=== PATIENT | female | born 1985 | race Two or more races ===

== ENCOUNTER → 2024-07-03 | Outpatient (BNVA) | payer MEDICAID, SELFPAY | END | disposition home or self-care (01) | PROVIDERS: PCP Physician Assistant; Referring Provider Physician Assistant; Visit Provider Urology | DX: N13.30 Unspecified hydronephrosis (principal); C55 Malignant neoplasm of uterus, part unspecified; C56.9 Malignant neoplasm of unspecified ovary; E66.9 Obesity, unspecified; Z68.43 Body mass index [BMI] 50.0-59.9, adult | CPT/HCPCS: 81003; 99212; G0463 ==

== ENCOUNTER → 2024-08-28 | Outpatient (CLI) | payer MEDICAID, SELFPAY ==
--- NOTE | 2024-08-28 13:00 | XR_ITS ---
Examination: Nuclear medicine kidney imaging flow and function multiple studies Exam date and time: August 28, 2024 1255 hrs. Indications: Pelvic carcinoma diagnosis, mild to moderate bilateral hydronephrosis on CT study March 20232023 Technique And Findings: Intravenous administration 10.2 mCi technetium 99m MAG3 Flow and function curves generated to 60 minutes Intravenous Lasix administered at 20 minutes Adequate flow and function multiple kidneys, Lasix administration does not have any effect on renal excretion Impression: Adequate flow and function of both kidneys
[2024-08-28 14:20] VITALS: BP 130/91; PULSE 73
[2024-08-28] MEDS: FUROSEMIDE INJ 10 MG/ML 4ML VIAL 40 MG IVP (14:20)
[2024-08-28 14:30] VITALS: BP 120/76; PULSE 74; RESP 14; O2SAT 100
== END | disposition home or self-care (01) ==
PROVIDERS: PCP Physician Assistant; Referring Provider Urology; Visit Provider Urology
DX: N13.30 Unspecified hydronephrosis (principal)
CPT/HCPCS: 78709; A9562; J1940

== ENCOUNTER → 2024-10-03 | Outpatient (BNVA) | payer MEDICAID, SELFPAY | END | disposition home or self-care (01) | PROVIDERS: PCP Physician Assistant; Referring Provider Physician Assistant; Visit Provider Urology | DX: N13.30 Unspecified hydronephrosis (principal); E66.01 Morbid (severe) obesity due to excess calories; Z68.42 Body mass index [BMI] 45.0-49.9, adult; C55 Malignant neoplasm of uterus, part unspecified; C56.9 Malignant neoplasm of unspecified ovary | CPT/HCPCS: 81003; 99212; G0463 ==

== ENCOUNTER 2024-11-03 13:22 | Emergency (ER) | payer MEDICAID, SELFPAY ==
[2024-11-03 13:23] VITALS: BMI 49.7
[2024-11-03 13:47] VITALS: BP 149/97; PULSE 90; RESP 18; TEMP 37.2; O2SAT 99; BMI 49.7
--- NOTE | 2024-11-03 13:51 | EKG_ITS ---
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
--- NOTE | 2024-11-03 13:51 | XR_ITS ---
Examination: CT brain head without contrast. 2-D sagittal coronal reconstructions Date and time of exam:November 03, 2024 1436 hours INDICATIONS: Onset headache right-sided facial numbness beginning 2 days ago CTDI: vol (mGy):49.8 DLP: (mGycm):978 Technique: Multiple CT axial sections of the brain have been obtained, 5 mm slice thickness. Contrast has not been administered. 2-D sagittal, coronal reconstructions have been obtained Low dose protocols were performed. One or more of the following dose reduction techniques were used; automated exposure control, adjustment of the mA and/or KV according to patient size, use of iterative reconstruction technique. Findings: No significant ventricular enlargement. Intra-axial or extra-axial hemorrhage density is not seen. No mass effect or midline shift Basal cisterns are not remarkable. Fourth ventricle is midline. Cranial vault intact. Impression: Negative for acute hemorrhage, mass effect or midline shift As clinically warranted, brain MRI follow-up would best assess for demyelinating disease
--- NOTE | 2024-11-03 13:51 | XR_ITS ---
Examination: AP lateral chest 2 views TECHNIQUE: AP lateral upright chest 2 views Exam date and time: November 03, 2024 1402 hours INDICATIONS: Chest pressure today. FINDINGS: Normal heart size Lungs are clear. Osseous structures are intact IMPRESSION: No active disease
--- NOTE | 2024-11-03 13:53 | PD.EDRME ---
Rapid Medical Screening Exam RME Arrival date/time: 11/03/24 13:22 39-year-old female presents to the emergency department for complaints of headache right-sided facial numbness and chest pressure Chief Complaint: Neuro Symptoms/Deficit Time Seen by Provider: 11/03/24 13:34 Vital signs: Vital Signs Temperature 98.9 F 11/03/24 13:47 Pulse Rate 90 11/03/24 13:47 Respiratory Rate 18 11/03/24 13:47 Blood Pressure 149/97 H 11/03/24 13:47 Pulse Oximetry (%) 99 11/03/24 13:47 Oxygen Delivery Method Room Air 11/03/24 13:47
[2024-11-03 15:02] LABS: Basophils # (Auto) 0.1 Thou/mm3 (0.0-0.2); Basophils % (Auto) 0 % (0-2.5); Eosinophils # (Auto) 0.4 Thou/mm3 (0.0-0.5); Eosinophils % (Auto) 3 % (0-10); Hematocrit 40.5 % (36.0-46.0); Hemoglobin 13.8 g/dL (12.0-16.0); Immature Granulocytes % (Auto) 0 % (0-0); Immature Granulocytes Auto 0.05 Thou/mm3 (0.00-0.00); Lymphocytes # (Auto) 3.4 Thou/mm3 (1.0-4.8); Lymphocytes % (Auto) 30 % (10-50); Mean Corpuscular HGB Conc 34.1 g/dl (31.0-37.0); Mean Corpuscular Volume 85 fL (80-100); Monocytes # (Auto) 0.8 Thou/mm3 (0.0-0.8); Monocytes % (Auto) 7 % (0-12); Neutrophils # (Auto) 6.9 Thou/mm3 (1.8-7.7); Neutrophils % (Auto) 60 % (37-80); Nucleated Red Blood Cell % 0 /100 WBC (0); Platelet Count 282 Thou/mm3 (140-440); Red Blood Count 4.76 Miln/mm3 (4.00-5.20); White Blood Count 11.5 Thou/mm3 (3.6-11.0)
[2024-11-03 15:24] LABS: Alanine Aminotransferase 18 U/L (10-49); Albumin, Serum 4.3 gm/dL (3.5-5.0); Albumin/Globulin Ratio 1.2 (1.2-2.2); Alkaline Phosphatase 112 U/L (46-116); Anion Gap 9 (7-16); Aspartate Amino Transferase 16 U/L (0-34); BUN/Creatinine Ratio 14 Ratio (12-20); Bilirubin,Total 0.3 mg/dL (0.3-1.2); Blood Urea Nitrogen 11 mg/dL (9-23); Calcium 8.8 mg/dL (8.3-10.6); Calcium (Corrected) 8.8 mg/dL (8.5-10.1); Carbon Dioxide 27.1 mMol/L (20.0-31.0); Chloride 105 mMol/L (98-107); Creatinine (Component) 0.8 mg/dL (0.6-1.3); Estimated Creatinine Clearance 118.4 mL/min (>60); Globulin 3.5 gm/dL (2.3-3.5); Glucose 90 mg/dL (74-106); Osmolality,Calculated 280 (275-295); Potassium 4.1 mMol/L (3.4-5.1); Sodium 141 mMol/L (136-145); Total Protein 7.8 gm/dL (5.7-8.2); Troponin I < 0.002 ng/mL (0.0-0.045); eGFR > 60 See Note
[2024-11-03 15:29] VITALS: BP 158/97; PULSE 91; RESP 19; TEMP 37.1; O2SAT 98
--- NOTE | 2024-11-03 17:25 | EDNOTE_ITS ---
<Statement entered by Emerita Amin MD - 11/14/24 06:11> As co-signing physician, I was present and available for consult prn. I concur with the plan and care as documented by the midlevel provider. Neuro Symptoms Deficit-RME/HPI General Chief Complaint: Neuro Symptoms/Deficit Stated Complaint: R FACIAL NUMBNESS X4 DAYS Time Seen by Provider: 11/03/24 13:34 Arrival date/time: 11/03/24 13:22 RME / HPI RME / HPI Narrative: 39-year-old female patient with no significant past medical history except for obesity, came in for evaluation regarding right-sided facial numbness. Onset of symptoms for the last 4 days severity of symptoms mild. Patient denies any facial muscle weakness. Denies any upper or lower extremity weakness. Denies any drooling, denies any headache denies any dizziness denies any fever denies any other complaints no medications taken prior to arrival. Related Data Home Medications ?Medication ?Instructions ?Recorded ?Confirmed tirzepatide (weight loss) 5 mg/0.5 5 mg subcut QWEEK 0 07/03/24 10/03/24 mL subcutaneous pen injector (Zepbound) Previous Rx's ?Medication ?Instructions ?Recorded albuterol sulfate 90 mcg/actuation 2 puff inhalation Q 6H PRN 10/01/23 aerosol inhaler (Ventolin HFA) shortness of breath or wheezing #8.5 grams Allergies Allergy/AdvReac Type Severity Reaction Status Date / Time No Known Allergies Allergy Verified 10/03/24 08:30 Review of Systems Review of Systems Narrative Review of Systems: Review of system reviewed and within normal limits except mentioned in HPI ED Exam Narrative Physical exam: VITAL SIGNS: Reviewed. GENERAL APPEARANCE: Alert and interactive, follows commands, no acute distress, HEAD AND FACE: Non-traumatic. ENT: PERRL, pink conjunctivitis, eyelid no trauma, Mucous membrane moist. NECK: Supple, nontender, no nuchal rigidity. CHEST: No tenderness, no crepitus, no paradoxical movement, no retractions. LUNGS: Clear, well ventilated, symmetric, no rales, no wheezing, no ronchi, no stridor, good breath sounds bilaterally. HEART: Regular rate, regular rhythm, no murmur, no gallops. ABDOMEN: Soft, positive bowel sounds, nondistended, no guarding, nontender, no rebound, no masses, RECTAL: Deferred. GENITAL: Deferred. NEUROLOGICAL: Gross motor function intact sensory function intact both upper and lower extremity, right-sided numbness noted on the side of the mouth, tongue midline protrusion appropriate for age. MUSCULOSKELETAL: low back nontender, full range of motion. EXTREMITIES: Nontender, full range of motion. SKIN: Color pink, dry, no rash, no lacerations, no abrasions, no contusions. LYMPHATICS: Deferred. Course Quality Measures none Orders Category Date Time Status EKG (ED ONLY) *Do not use* NOW Care 11/03/24 13:[address] head/brain wo con Stat Exams 11/03/24 13:51 Completed EKG (ED Only) Stat Exams 11/03/24 13:51 Draft XR chest 2V Stat Exams 11/03/24 13:51 Completed CBC Stat Lab 11/03/24 14:45 Completed Comprehensive Metabolic Panel Stat Lab 11/03/24 14:45 Completed Troponin I Stat Lab 11/03/24 14:45 Completed Vital Signs Vital signs: Vital Signs Temperature 98.9 F 11/03/24 13:47 Pulse Rate 90 11/03/24 13:47 Respiratory Rate 18 11/03/24 13:47 Blood Pressure 149/97 H 11/03/24 13:47 Pulse Oximetry (%) 99 11/03/24 13:47 Oxygen Delivery Method Room Air 11/03/24 13:47 Neuro Symptoms / Deficit MDM Narrative MDM Narrative:: 39-year-old female patient with no significant past medical history except for obesity, came in for evaluation regarding right-sided facial numbness. Onset of symptoms for the last 4 days severity of symptoms mild. Patient denies any facial muscle weakness. Denies any upper or lower extremity weakness. Denies any drooling, denies any headache denies any dizziness denies any fever denies any other complaints no medications taken prior to arrival. CT scan of the head unremarkable. Patient's workup also came back normal I personally reviewed and interpreted the x-ray of this patient. There is no acute abnormalities found, no infiltrates no pneumothorax no hemothorax normal chest x-ray. Review of other structures was without significant abnormal findings also. I additionally reviewed the radiologist report and agree with the interpretation. EKG showed normal sinus rhythm, ventricular rate of 88 bpm, no ST segment elevation depression noted. Patient was advised to closely follow-up with PCP and return to emergency room for worsening of symptoms especially if patient is complaining of upper or lower extremity weakness. Patient data External records reviewed:: None Clinical information provided by:: none Social determinants that could affect healthcare access:: none Patient has the following chronic illnesses:: None How is presenting disease/condition affected by chronic disease/condition?: no chronic disease Evaluation data The following diagnostics were reviewed and interpreted by me:: lab results, radiology exam(s) and EKG tracing(s) Lab and/or radiology exams considered but not ordered:: None Interpretation Summary: See results MDM Medications / Prescriptions Medications or Prescriptions considered but not ordered:: None Medication administrations:: None Consultations Consultation(s) initiated? (list below): No Diagnosis Neuro Differential Diagnosis: peripheral neuropathy and other (Paresthesia, CVA) Most likely diagnosis given after review of the tests above:: Facial paresthesia Admission Indicated Admission indicated?: not indicated Admission Request Was there a request for admission?: No Disposition Plan Disposition Plan: Discharge Discharge Attestation Discharge Attestation: The patient was given an opportunity to ask questions and understood the discharge instructions. Discharge instructions specifically effects, indications for sooner follow up or return to the emergency department, and the expected course of current diagnosis. Patient condition: Stable Discharge Plan Plan Patient Disposition: HOME (Self Care) Discharge Disposition comment: Stable Prescriptions/Referrals Prescriptions/Med Rec: No Action Zepbound 5 mg/0.5 mL pen injector 5 mg subcut QWEEK albuterol sulfate [Ventolin HFA] 90 mcg/actuation HFA aerosol inhaler 2 puff inhalation Q6H PRN (Reason: shortness of breath or wheezing) Qty: 8.5 3RF Referrals: No Primary/Family,Physician [Primary Care Provider] - In 1 week Problem List Clinical Impression: Facial paresthesia Patient/Caregiver Discharge Instructions Discharge Activity: activity as tolerated Education Materials: ED Paraesthesias Additional Instructions: Thank you for the opportunity for serving you today. You are stable for discharged . You are advised to: Follow-up with your PCP in 1 to 2 days Return to ED for worsening of symptoms As your PCP to refer you to a neurologist outpatient in few days Print Language: Surinamese Stand Alone Forms: [employer] Award Info., Patient Portal Info Letter ANIBAL/ANTONIO Supervising Physician ANIBAL/ANTONIO Supervising Physician: Md Neli
[2024-11-03 17:31] VITALS: BP 122/82; PULSE 67
== END 2024-11-03 17:31 | disposition home or self-care (01) ==
PROVIDERS: Nurse Practitioner Primary Care; Emergency Provider Emergency Medicine
DX: R20.0 Anesthesia of skin (principal); R20.2 Paresthesia of skin; R07.89 Other chest pain; R51.9 Headache, unspecified
CPT/HCPCS: 36415; 70450; 71046; 80053; 84484; 85025; 93005; 99284

== ENCOUNTER → 2025-01-26 | Outpatient (CLI) | payer MEDICAID, SELFPAY ==
--- NOTE | 2025-01-26 10:24 | XR_ITS ---
Examination: CT abdomen, without intravenous contrast. CT pelvis, without intravenous contrast. CT abdomen, with intravenous contrast. CT pelvis, with intravenous contrast. 2-D sagittal coronal reconstructions. Date and time of exam:January 26, 2025 1232 hours INDICATIONS: Lower abdominal pain beginning 7 months ago CTDI: vol (mGy) 44.13 DLP: (mGycm) 1730 Technique: Multiple 3.0 axial images of the abdomen and pelvis without intravenous contrast, 3.0 mm slice thickness. Multiple 3.0 postcontrast images abdomen and pelvis also obtained, post intravenous injection 60 cc [id number] 2-D sagittal and coronal reconstructions. Low dose protocols were performed. One or more of the following dose reduction techniques were used; automated exposure control, adjustment of the mA and/or KV according to patient size, use of iterative reconstruction technique. Findings: No focal liver or splenic lesions, hepatomegaly 21 cm No gallstones Fat-containing upper abdominal wall hernia defect 4 cm No pancreatic mass No renal or ureteral calculi, no hydronephrosis Aorta normal size Normal appendix No bowel obstruction No diverticulitis Urinary bladder intact Absent uterus IMPRESSION: No renal or ureteral calculi, no hydronephrosis Normal appendix No bowel obstruction diverticulitis or free air
== END | disposition home or self-care (01) ==
LOC: CDIM 09:35
PROVIDERS: PCP Physician Assistant; Referring Provider Obstetrics & Gynecology; Visit Provider Obstetrics & Gynecology
DX: N83.8 Other noninflammatory disorders of ovary, fallopian tube and broad ligament (principal); C54.1 Malignant neoplasm of endometrium
CPT/HCPCS: 74178; A4649; Q9967

== ENCOUNTER 2025-02-17 23:44 | Emergency (ER) | payer MEDICAID, SELFPAY ==
[2025-02-17 23:47] VITALS: BMI 47.5
[2025-02-17 23:54] VITALS: BP 119/80; RESP 17; TEMP 36.7; O2SAT 98
--- NOTE | 2025-02-17 23:59 | XR_ITS ---
Examination: Abdomen sonogram, Limited Date and time of exam: February 18, 2025, 0017 hrs. Indications: Onset right upper abdominal pain today Technique: Real-time louis scale transabdominal sonographic images of the upper abdomen obtained. Findings: Normal gallbladder. Normal common bile duct 0.4 cm. Pancreatic head 3.3 cm. Liver 17.3 cm fatty infiltration no focal liver lesions. Normal hepatopedal portal venous flow. Patent IVC. Impression: Normal gallbladder. Normal common bile duct
--- NOTE | 2025-02-17 23:59 | PD.EDRME ---
Rapid Medical Screening Exam RME Arrival date/time: 02/17/25 23:44 This is a case of 39-year-old female with history of E. coli came in the emergency room due to upper abdominal pain with nausea vomiting worse today Chief Complaint: Abdominal Pain Vital signs: Vital Signs Temperature 98.0 F 02/17/25 23:54 Respiratory Rate 17 02/17/25 23:54 Blood Pressure 119/80 02/17/25 23:54 Pulse Oximetry (%) 98 02/17/25 23:54 Oxygen Delivery Method Room Air 02/17/25 23:54
[2025-02-18 00:16] LABS: Basophils # (Auto) 0.1 Thou/mm3 (0.0-0.2); Basophils % (Auto) 0 % (0-2.5); Eosinophils # (Auto) 0.4 Thou/mm3 (0.0-0.5); Eosinophils % (Auto) 3 % (0-10); Hematocrit 40.9 % (36.0-46.0); Hemoglobin 13.6 g/dL (12.0-16.0); Immature Granulocytes Auto 0.05 Thou/mm3 (0.00-0.00); Lymphocytes # (Auto) 4.3 Thou/mm3 (1.0-4.8); Lymphocytes % (Auto) 34 % (10-50); Mean Corpuscular HGB Conc 33.3 g/dl (31.0-37.0); Mean Corpuscular Hemoglobin 29.2 pg (25.0-35.0); Mean Corpuscular Volume 88 fL (80-100); Monocytes # (Auto) 0.7 Thou/mm3 (0.0-0.8); Monocytes % (Auto) 6 % (0-12); Neutrophils # (Auto) 7.2 Thou/mm3 (1.8-7.7); Neutrophils % (Auto) 56 % (37-80); Nucleated Red Blood Cell # 0.00 Thou/mm3 (0.00-0.00); Nucleated Red Blood Cell % 0 /100 WBC (0); Platelet Count 284 Thou/mm3 (140-440); RDW Standard Deviation 44.3 fL (36.4-46.3); Red Blood Count 4.66 Miln/mm3 (4.00-5.20); White Blood Count 12.7 Thou/mm3 (3.6-11.0)
[2025-02-18 00:38] LABS: Alanine Aminotransferase 19 U/L (10-49); Albumin, Serum 4.2 gm/dL (3.5-5.0); Albumin/Globulin Ratio 1.4 (1.2-2.2); Alkaline Phosphatase 120 U/L (46-116); Anion Gap 8 (7-16); Aspartate Amino Transferase 15 U/L (0-34); BUN/Creatinine Ratio 13 Ratio (12-20); Bilirubin,Total 0.3 mg/dL (0.3-1.2); Blood Urea Nitrogen 12 mg/dL (9-23); Calcium 9.8 mg/dL (8.3-10.6); Calcium (Corrected) 9.8 mg/dL (8.5-10.1); Carbon Dioxide 25.7 mMol/L (20.0-31.0); Chloride 107 mMol/L (98-107); Creatinine (Component) 0.9 mg/dL (0.6-1.3); Estimated Creatinine Clearance 102.3 mL/min (>60); Globulin 3.1 gm/dL (2.3-3.5); Glucose 94 mg/dL (74-106); Lipase 34 U/L (12-53); Osmolality,Calculated 280 (275-295); Potassium 3.8 mMol/L (3.4-5.1); Sodium 141 mMol/L (136-145); Total Protein 7.3 gm/dL (5.7-8.2); eGFR > 60 See Note
[2025-02-18 00:53] LABS: Collection Type, Urine Clean Catch
[2025-02-18 00:55] LABS: HCG Qualitative,Urine Negative
[2025-02-18 00:58] LABS: Bilirubin,Urine Negative (Negative); Blood,Urine Negative (Negative); Clarity,Urine Clear (Clear/Hazy); Color,Urine Lt-Yellow (Lt Yel-Yel); Glucose, Urine Negative (Negative); Ketones,Urine Negative (Negative); Leukocyte Esterase,Urine Negative (Negative); Nitrite,Urine Negative (Negative); PH,Urine 6.0 (5.0-7.0); Protein,Urine Negative (Neg - Trace); RBC,Urine 1 /hpf (0-3); Specific Gravity,Urine 1.019 (1.001-1.035); Squamous Epithelial Cell,Urine 1 /hpf (0-5); Urobilinogen,Urine Negative mg/dL (0.0-1.0); WBC,Urine < 1 /hpf (0-5)
--- NOTE | 2025-02-18 01:01 | PD.EDABDPN ---
ED Abdominal Pain RME/HPI General Chief Complaint: Abdominal Pain Stated complaint: UPPER ABD PAIN Time seen by provider: 02/18/25 00:06 Arrival date/time: 02/17/25 23:44 RME / HPI RME / HPI narrative: 02/17/25 23:44 This is a case of 39-year-old female with history of E. coli came in the emergency room due to upper abdominal pain with nausea vomiting worse today DR. CHAO MAIN ED EVALUATION: 39 y/o female with Hx of Ovarian CA presents to ED c/o epigastric abdominal pain and feeling sick when she tries to eat x 1 day. Patient does admit to experiencing heartburn in the past. Denies any medical history. Patient takes daily Vitamin-D and weekly Zepbound. No other concerns or complaints expressed at this time. Related Data Home Medications ?Medication ?Instructions ?Recorded ?Confirmed tirzepatide (weight loss) 5 mg/0.5 5 mg subcut QWEEK 07/03/24 10/03/24 mL subcutaneous pen injector (Zepbound) Previous Rx's ?Medication ?Instructions ?Recorded albuterol sulfate 90 mcg/actuation 2 puff inhalation Q6H PRN 10/01/23 aerosol inhaler (Ventolin HFA) shortness of breath or wheezing #8.5 grams dicyclomine 20 mg tablet 20 mg PO QID PRN abdominal pain 02/18/25 #20 tabs pantoprazole 40 mg tablet,delayed 40 mg PO QDAY #30 tabs 02/18/25 release (Protonix) Allergies Allergy/AdvReac Type Severity Reaction Status Date / Time No Known Allergies Allergy Verified 02/17/25 23:46 Review of Systems Review of Systems Systems Reviewed: All systems reviewed, normal except as documented Past Medical History Past Medical History RESPIRATORY: Positive Asthma OTHER HISTORY: Positive Cancer (ovarian) and Cervical Cancer Surgical History SURGICAL: Positive Hysterectomy (and eddie ovaries removed) ED Exam Narrative Physical exam: Generally patient is alert and in no obvious distress, heart regular rate and rhythm, lungs clear to auscultation equal bilaterally, abdomen soft bowel sounds present epigastric abdominal tenderness without rebound. No right upper quadrant abdominal tenderness. Neurologic exam Delilah Coma Scale is 15, skin is cold pale and dry Course Quality Measures none Orders Category Date Time Status US gall bladder Stat Exams 02/17/25 23:59 Taken CBC Stat Lab 02/17/25 23:59 Completed Comprehensive Metabolic Panel Stat Lab 02/17/25 23:59 Completed HCG Qualitative,Urine Stat Lab 02/18/25 00:46 Completed Lipase Stat Lab 02/17/25 23:59 Completed Urinalysis Stat Lab 02/18/25 00:46 Completed Vital Signs Vital signs: Vital Signs Temperature 98.0 F 02/17/25 23:54 Respiratory Rate 17 02/17/25 23:54 Blood Pressure 119/80 02/17/25 23:54 Pulse Oximetry (%) 98 02/17/25 23:54 Oxygen Delivery Method Room Air 02/17/25 23:54 Abdominal Pain MDM MDM Narrative MDM Narrative:: Scribe Attestation: Brittany Wilson, am scribing for and in the presence of Dr. Chao. Provider Notation: Although this document has been carefully reviewed, there may still be some phonetic and other typographical errors. These errors are purely grammatical due to imperfections in the software program and should not be construed in any way to compromise the substance of the patient's medical care during this visit. Differential diagnosis: Gallbladder disease, gastroesophageal reflux disease, medication effect, gastritis I interpreted all labs. The patient is on a GLP?1 medication, Zepbound. Gallbladder ultrasound showed no evidence of acute disease. LFTs are normal. There is no leukocytosis. is negative. Patient will be discharged on Bentyl and Protonix to be taken as prescribed. She does admit to heartburn. She has to follow-up with her doctor for further treatment and evaluation. She is avoid hot spicy greasy fatty foods. Patient data External records reviewed:: [facility] previous records (Reviewed prior ED records from 11/03/24. Patient was seen for Facial paresthesia.) Clinical information provided by:: patient Social determinants that could affect healthcare access:: none Patient has the following chronic illnesses:: Asthma How is presenting disease/condition affected by chronic disease/condition?: uneffected by Evaluation data The following diagnostics were reviewed and interpreted by me:: lab results and radiology exam(s) Lab and/or radiology exams considered but not ordered:: None Interpretation Summary: RADIOLOGY Gall Bladder US: Pending official radiology report. Medications / Prescriptions Medications or Prescriptions considered but not ordered:: None Medication administrations:: See above if any. Consultations Consultation(s) initiated? (list below): No Diagnosis Differential diagnosis abdominal pain: abdominal pain, acute appendicitis, calculus of kidney, constipation, diverticulitis, endometriosis, gastroenteritis, pancreatitis, small bowel obstruction and other (GERD, Gastritis) Most likely diagnosis given after review of the tests above:: none Admission Indicated Admission indicated?: not indicated Explain why admission is indicated or not indicated:: Patient does not meet admission criteria. Admission Request Was there a request for admission?: No Disposition Plan Disposition Plan: Discharge Discharge Attestation Discharge Attestation: The patient and all family members were given an opportunity to ask questions and understood the discharge instructions. Discharge instructions specifically effects, indications for sooner follow up or return to the emergency department, and the expected course of current diagnosis. Patient condition: Stable Discharge Plan Plan Patient Disposition: HOME (Self Care) Prescriptions/Referrals Prescriptions/Med Rec: New pantoprazole [Protonix] 40 mg tablet,delayed release (DR/EC) 40 mg PO QDAY Qty: 30 0RF dicyclomine 20 mg tablet 20 mg PO QID PRN (Reason: abdominal pain) Qty: 20 0RF No Action Zepbound 5 mg/0.5 mL pen injector 5 mg subcut QWEEK albuterol sulfate [Ventolin HFA] 90 mcg/actuation HFA aerosol inhaler 2 puff inhalation Q6H PRN (Reason: shortness of breath or wheezing) Qty: 8.5 3RF Referrals: Ana Ruiz PA-C [Primary Care Provider] - In 1 week Problem List Clinical Impression: Abdominal pain Patient/Caregiver Discharge Instructions Education Materials: Abdominal Pain Additional Instructions: Medication as prescribed. Follow-up with your doctor for further treatment and evaluation. Return to ER as needed or if condition worsens. Print Language: French Stand Alone Forms: [employer] Award Info., Patient Portal Info Letter
[2025-02-18 01:28] VITALS: BP 132/93; PULSE 71; RESP 18; TEMP 36.9; O2SAT 96
--- NOTE | 2025-02-18 02:09 | PRELIM_ITS ---
Gallbladder ultrasound with Doppler and wave Doppler spectral analysis. February 18, 2025 0017 hours Clinical history: Gallstone Comparison: None available at the time of this report. Findings: The visualized liver is enlarged and demonstrates increased echogenicity. Heterogenous liver parenchyma. The portal vein is patent with hepatopetal flow and normal with Doppler spectral analysis. No gallbladder calculus, wall thickening or pericholecystic fluid is identified. Perry sign is negative. The common duct is normal in caliber at 3.7 mm. No free fluid is demonstrated on the submitted images. The pancreas is within normal limits. Impression: No sonographic evidence of cholelithiasis, acute cholecystitis or biliary obstruction. Hepatomegaly associated with liver steatosis, suspicious for steatohepatitis. Possible cirrhosis. Report Electronically Signed By: Jayy Pisano 02/18/2025 2:07:58 AM [EST]
== END 2025-02-18 02:47 | disposition home or self-care (01) ==
PROVIDERS: Nurse Practitioner Family; Emergency Provider Emergency Medicine; PCP Physician Assistant
DX: R10.11 Right upper quadrant pain (principal)
CPT/HCPCS: 36415; 76705; 80053; 81001; 81025; 83690; 85025; 99283

== ENCOUNTER → 2025-04-23 | Outpatient (CLI) | payer MEDICAID, SELFPAY ==
--- NOTE | 2025-04-23 08:00 | XR_ITS ---
Examination: Abdomen sonogram, complete Date and time of exam: April 23, 2025, 0832 hours INDICATIONS: Intermittent epigastric pain beginning 1 year ago. Technique: Multiple real-time grayscale transabdominal sonographic images of the abdomen have been obtained. Findings: Contracted gallbladder, gallbladder wall is thickened 0.7 cm Common bile duct 0.4 cm Pancreatic head prominent 4.02 cm Liver 18.3 cm no focal liver lesions Normal hepatopetal portal venous flow Patent IVC Right kidney 10.6 cm renal cortex 1.4 cm Left kidney 11.2 cm renal cortex 2.3 cm Spleen 10.9 cm IMPRESSION: Recommend repeating the gallbladder portion of the study with fasting Prominent pancreatic head, clinical correlation advised Mild to moderate hepatomegaly
== END | disposition home or self-care (01) ==
LOC: CDIM 08:15
PROVIDERS: PCP Physician Assistant; Referring Provider Physician Assistant; Visit Provider Physician Assistant
DX: R16.0 Hepatomegaly, not elsewhere classified (principal); K86.89 Other specified diseases of pancreas
CPT/HCPCS: 76700

== ENCOUNTER → 2025-05-29 | Outpatient (CLI) | payer MEDICAID, SELFPAY ==
--- NOTE | 2025-05-29 08:48 | XR_ITS ---
Examination: Abdomen sonogram, complete Date and time of exam: May 29, 2025, 1110 hours INDICATIONS: Epigastric pain beginning several years ago. Technique: Multiple real-time grayscale transabdominal sonographic images of the abdomen have been obtained. Findings: 11 mm stone in the gallbladder neck Gallbladder wall 0.3 cm no edema Common bile duct 0.33 cm Pancreatic head 3.5 cm Aorta not enlarged Liver 17.4 cm fatty infiltration lobular contour Normal hepatopetal portal venous flow Patent IVC Right kidney 10.2 cm renal cortex 2.5 cm Left kidney 11.0 cm renal cortex 3.0 cm Spleen 9.3 cm IMPRESSION: Cholelithiasis, negative for cholecystitis Normal common bile duct Mild to moderate hepatomegaly fatty infiltration, suspect primary hepatocellular disease
--- NOTE | 2025-05-29 09:00 | XR_ITS ---
Examination: CT abdomen, without intravenous contrast. CT pelvis, without intravenous contrast. CT abdomen, with intravenous contrast. CT pelvis, with intravenous contrast. 2-D sagittal coronal reconstructions. Date and time of exam: May 29, 2025, 0922 hours, comparison January 26, 2025 INDICATIONS: Diagnosis disease of the pancreas, patient states he has an enlarged liver, history lower abdominal pain CTDI: vol (mGy) 33.7 DLP: (mGycm) 2050 Technique: Multiple 3.0 axial images of the abdomen and pelvis without intravenous contrast, 3.0 mm slice thickness. Multiple 3.0 postcontrast images abdomen and pelvis also obtained, post intravenous injection 60 cc [id number]-[id number] 2-D sagittal and coronal reconstructions. Low dose protocols were performed. One or more of the following dose reduction techniques were used; automated exposure control, adjustment of the mA and/or KV according to patient size, use of iterative reconstruction technique. Findings: No visualized liver or splenic lesion, hepatomegaly 20 cm No gallstones No pancreatic or adrenal mass No renal or ureteral calculi, no hydronephrosis Aorta normal size Normal appendix No bowel obstruction Normal seminal vesicles No prostatomegaly Intact urinary bladder IMPRESSION: Hepatomegaly, 20 cm No acute process in the abdomen or pelvis
== END | disposition home or self-care (01) ==
PROVIDERS: PCP Physician Assistant; Referring Provider Physician Assistant; Visit Provider Physician Assistant
DX: K80.20 Calculus of gallbladder without cholecystitis without obstruction (principal); K76.0 Fatty (change of) liver, not elsewhere classified
CPT/HCPCS: 74178; 76700; A4649; Q9967

== ENCOUNTER 2025-06-04 03:05 | Emergency (ER) | payer MEDICAID, SELFPAY ==
[2025-06-04 03:33] VITALS: BP 122/84; PULSE 82; RESP 18; TEMP 36.8; O2SAT 98
[2025-06-04 03:34] VITALS: BMI 46.6
--- NOTE | 2025-06-04 03:37 | XR_ITS ---
Examination: Abdomen sonogram, Limited Date and time of exam: June 04, 2025, 0431 hours INDICATIONS: Right upper abdominal pain beginning 2 months ago Technique: Real-time louis scale transabdominal sonographic images of the upper abdomen obtained. Findings: 8 mm gallstone Normal gallbladder wall Normal common bile duct 0.3 cm Pancreatic head 3.0 cm Liver 16.4 cm no liver lesions lobular contour Normal hepatopetal portal venous flow Patent IVC IMPRESSION: Cholelithiasis, negative for cholecystitis
--- NOTE | 2025-06-04 03:38 | PD.EDRME ---
Rapid Medical Screening Exam RME Arrival date/time: 06/04/25 03:05 This is a case of 39-year-old female with history of gallstones came into the emergency room due to right upper quadrant pain for 2 days associated with nausea vomiting Chief Complaint: Abdominal Pain Vital signs: Vital Signs Temperature 98.2 F 06/04/25 03:33 Pulse Rate 82 06/04/25 03:33 Respiratory Rate 18 06/04/25 03:33 Blood Pressure 122/84 06/04/25 03:33 Pulse Oximetry (%) 98 06/04/25 03:33 Oxygen Delivery Method Room Air 06/04/25 03:33 Exam: Moderate tenderness right upper quadrant positive Perry's Clinical Impression: Abdominal pain
[2025-06-04 03:53] LABS: Collection Type, Urine Clean Catch
[2025-06-04 03:54] LABS: Basophils # (Auto) 0.1 Thou/mm3 (0.0-0.2); Basophils % (Auto) 1 % (0-2.5); Eosinophils # (Auto) 0.4 Thou/mm3 (0.0-0.5); Eosinophils % (Auto) 3 % (0-10); Hematocrit 42.3 % (36.0-46.0); Hemoglobin 13.8 g/dL (12.0-16.0); Immature Granulocytes Auto 0.05 Thou/mm3 (0.00-0.00); Lymphocytes # (Auto) 4.3 Thou/mm3 (1.0-4.8); Lymphocytes % (Auto) 33 % (10-50); Mean Corpuscular HGB Conc 32.6 g/dl (31.0-37.0); Mean Corpuscular Hemoglobin 29.3 pg (25.0-35.0); Mean Corpuscular Volume 90 fL (80-100); Monocytes # (Auto) 0.7 Thou/mm3 (0.0-0.8); Monocytes % (Auto) 5 % (0-12); Neutrophils # (Auto) 7.5 Thou/mm3 (1.8-7.7); Neutrophils % (Auto) 58 % (37-80); Nucleated Red Blood Cell # 0.00 Thou/mm3 (0.00-0.00); Nucleated Red Blood Cell % 0 /100 WBC (0); Platelet Count 236 Thou/mm3 (140-440); RDW Standard Deviation 44.9 fL (36.4-46.3); Red Blood Count 4.71 Miln/mm3 (4.00-5.20); White Blood Count 13.1 Thou/mm3 (3.6-11.0)
[2025-06-04 03:57] LABS: HCG Qualitative,Urine Negative
[2025-06-04 04:02] LABS: Amorphous Crystals,Urine Present (Absent); Bacteria,Urine Rare; Bilirubin,Urine Negative (Negative); Blood,Urine Negative (Negative); Clarity,Urine Clear (Clear/Hazy); Color,Urine Lt-Yellow (Lt Yel-Yel); Glucose, Urine Negative (Negative); Ketones,Urine Negative (Negative); Leukocyte Esterase,Urine Negative (Negative); Nitrite,Urine Negative (Negative); PH,Urine 6.0 (5.0-7.0); Protein,Urine Negative (Neg - Trace); RBC,Urine 2 /hpf (0-3); Specific Gravity,Urine 1.027 (1.001-1.035); Squamous Epithelial Cell,Urine 4 /hpf (0-5); Urobilinogen,Urine Negative mg/dL (0.0-1.0); WBC,Urine 1 /hpf (0-5)
[2025-06-04 04:13] LABS: Alanine Aminotransferase 17 U/L (10-49); Albumin, Serum 4.7 gm/dL (3.5-5.0); Albumin/Globulin Ratio 1.5 (1.2-2.2); Alkaline Phosphatase 117 U/L (46-116); Anion Gap 9 (7-16); Aspartate Amino Transferase 16 U/L (0-34); BUN/Creatinine Ratio 18 Ratio (12-20); Bilirubin,Total 0.4 mg/dL (0.3-1.2); Blood Urea Nitrogen 16 mg/dL (9-23); Calcium 9.2 mg/dL (8.3-10.6); Calcium (Corrected) 9.2 mg/dL (8.5-10.1); Carbon Dioxide 27.6 mMol/L (20.0-31.0); Chloride 106 mMol/L (98-107); Creatinine (Component) 0.9 mg/dL (0.6-1.3); Estimated Creatinine Clearance 101.1 mL/min (>60); Globulin 3.1 gm/dL (2.3-3.5); Glucose 86 mg/dL (74-106); Lipase 36 U/L (12-53); Osmolality,Calculated 285 (275-295); Potassium 3.9 mMol/L (3.4-5.1); Sodium 143 mMol/L (136-145); Total Protein 7.8 gm/dL (5.7-8.2); eGFR > 60 See Note
[2025-06-04] MEDS: ONDANSETRON INJ 2 MG/ML INJ 2 ML 4 MG IVP (04:17)
[2025-06-04] MEDS: MORPHINE SULF INJ 4 MG/ML VIAL IVP (04:17)
--- NOTE | 2025-06-04 05:27 | EDNOTE_ITS ---
ED Abdominal Pain RME/HPI General Chief Complaint: Abdominal Pain Stated complaint: RIGHT UPPER ABD PAIN Arrival date/time: 06/04/25 03:05 Limitations: no limitations RME / HPI RME / HPI narrative: 06/04/25 03:05 This is a case of 39-year-old female with history of gallstones came into the emergency room due to right upper quadrant pain for 2 days associated with nausea vomiting Dr. Mckoy?s Main ED Evaluation: 39yo female with a history of uterine and ovarian CA s/p total hysterectomy with salpingo-oophorectomy in remission, asthma presents to the ED for a chief complaint of epigastric and RUQ pain x 2-3 days. Patient states her pain worsens after she eats and drinks water. Patient reports associated nausea and chills. Denies any vomiting, dysuria, hematuria, or any other associated symptoms. NKA. Patient is currently going through changes with her insurance and does not have a PCP or oncologist. Related Data Home Medications ?Medication ?Instructions ?Recorded ?Confirmed tirzepatide (weight loss) 5 mg/0.5 5 mg subcut QWEEK 0 07/03/24 10/03/24 mL subcutaneous pen injector (Zepbound) Previous Rx's ?Medication ?Instructions ?Recorded albuterol sulfate 90 mcg/actuation 2 puff inhalation Q 6H PRN 10/01/23 aerosol inhaler (Ventolin HFA) shortness of breath or wheezing #8.5 grams dicyclomine 20 mg tablet 20 mg PO QID PRN abdominal p ain 02/18/25 #20 tabs pantoprazole 40 mg tablet,delayed 40 mg PO QDAY #30 ta bs 02/18/25 release (Protonix) Allergies Allergy/AdvReac Type Severity Reaction Status Date / Time No Known Allergies Allergy Verified 06/04/25 03:06 Review of Systems Review of Systems Systems Reviewed: All systems reviewed, normal except as documented ED Exam General Limitations: Present no limitations General appearance: Present alert and in no apparent distress Head Head exam: Present atraumatic Eye Eye exam: Present normal appearance, PERRL and EOMI ENT ENT exam: Present normal exam, normal oropharynx and mucous membranes moist Neck Neck exam: Present normal inspection, full ROM and trachea midline Chest Chest inspection: Present normal inspection and symmetric chest wall rise Respiratory Respiratory exam: Present normal lung sounds bilaterally Cardiovascular Cardiovascular exam: Present regular rate, normal rhythm and normal heart sounds Abdominal Exam Abdominal exam: Present soft and tenderness (RUQ); Absent distention, guarding or rebound Extremities Exam Extremities exam: Present normal inspection and full ROM Back Exam Back exam: Present normal inspection and full ROM Neurological Exam Neurological exam: Present alert, oriented X3 and CN II-XII intact Psychiatric Psychiatric exam: Present normal affect and normal mood Skin Skin exam: Present warm, dry, intact and normal color Course Quality Measures none Orders Category Date Time Status IV [Insert IV] NOW Care 06/04/25 04:12 Active US gall bladder Stat Exams 06/04/25 03:37 Taken Blood Culture (Lab) Stat Lab 06/04/25 05:28 Ordered CBC Stat Lab 06/04/25 03:44 Completed Comprehensive Metabolic Panel Stat Lab 06/04/25 03:44 Completed HCG Qualitative,Urine Stat Lab 06/04/25 03:47 Completed Lipase Stat Lab 06/04/25 03:44 Completed Urinalysis Stat Lab 06/04/25 03:47 Completed HYDROmorphone INJ [Dilaudid Inj] Med 06/04/25 05:29 Discontinued 1 mg IVP X1 ONE Morphine* Inj Med 06/04/25 03:38 Discontinued 4 mg IM X1 ONE Morphine* Inj Med 06/04/25 04:13 Discontinued 4 mg IVP X1 ONE Ondansetron Inj [Zofran Inj] Med 06/04/25 03:38 Discontinued 4 mg IM X1 ONE Ondansetron Inj [Zofran Inj] Med 06/04/25 04:09 Discontinued 4 mg IVP X1 ONE Vital Signs Vital signs: Vital Signs Temperature 98.2 F 06/04/25 03:33 Pulse Rate 82 06/04/25 03:33 Respiratory Rate 18 06/04/25 03:33 Blood Pressure 122/84 06/04/25 03:33 Pulse Oximetry (%) 98 06/04/25 03:33 Oxygen Delivery Method Room Air 06/04/25 03:33 Abdominal Pain MDM MDM Narrative MDM Narrative:: Scribe Attestation: 06/04/25 - Yas Wilson am scribing for and in the presence of Dr. Mckoy. Patient is a 39-year-old female with medical history notable for ovarian and uterine cancer status postresection, gallstones as an emergency primary concerns for right upper quadrant abdominal pain. Symptoms have been present on and off since the weekend. Vital signs and exam as listed. Concern for cholelithiasis, cholecystitis, pancreatitis among others. Prior provider evaluated patient. Ordered labs, right upper quadrant ultrasound and offered medication for symptom relief. Per chart review patient was recently seen in the emergency department had a CT scan of the abdomen pelvis done with IV contrast as well as a right upper quadrant ultrasound and labs. CT scan identified enlarged liver however no other abnormalities. Right upper quadrant ultrasound showed evidence of gallstones. No evidence of cholecystitis. Labs today with leukocytosis 13.1, no left shift, no acute metabolic disturbance, urinalysis without evidence of infection patient is not . Right upper quadrant ultrasound with evidence of cholelithiasis, no evidence of cholecystitis. On reevaluation patient hemodynamically stable not in distress will discharge to home close return precautions follow-up with primary doctor as well as recommendation that she establish care with a surgeon for further workup and management of her cholelithiasis. Also advised patient that it is important that she abstain from fatty foods, dairy, spicy foods which may exacerbate her symptoms Patient data External records reviewed:: [facility] previous records (Per chart review, patient was seen here on 02/18/25 for abdominal pain.) Clinical information provided by:: patient Social determinants that could affect healthcare access:: none Patient has the following chronic illnesses:: uterine and ovarian CA s/p total hysterectomy with salpingo-oophorectomy in remission, asthma How is presenting disease/condition affected by chronic disease/condition?: uneffected by Evaluation data The following diagnostics were reviewed and interpreted by me:: lab results and radiology exam(s) Lab and/or radiology exams considered but not ordered:: none Interpretation Summary: Right upper quadrant abdominal ultrasound with Doppler and wave Doppler spectral analysis. June 04, 2025 at 0431 hours Clinical history: Gallstones. Technique: Grayscale and color flow images of the right upper quadrant are provided. Hepatic and portal veins were also imaged with color flow images. Comparison: None available at the time of this report. Findings: The liver is enlarged and demonstrates increased echogenicity. No intrahepatic biliary ductal dilatation. Gallstones. No gallbladder wall thickening or chata cholecystic fluid is demonstrated. The common bile duct is normal in caliber at 2.7 mm. The pancreas is unremarkable to the extent visualized. The imaged portions of the right kidney are within normal limits. The portal vein is patent with Doppler without flow and normal wave Doppler spectral analysis. The hepatic veins are patent. Perry sign is not available at the time of this report. Impression: Gallstones without evidence of acute cholecystitis. Hepatomegaly associated with liver steatosis, suspicious for steatohepatitis. This report has been electronically signed by: Jayy Pisano MD. Medications / Prescriptions Medications or Prescriptions considered but not ordered:: none Medication administrations:: Medication Administration History Discontinued Medications Hydromorphone HCl (Hydromorphone Inj 2 Mg/Ml Vial) 1 mg IVP X1 ONE Stop: 06/04/25 05:30 Morphine Sulfate (Morphine Sulf Inj 4 Mg/Ml Vial) 4 mg IM X1 ONE Stop: 06/04/25 03:39 Last Admin: 06/04/25 04:18 Dose: Not Given Documented By: SAMY Non-Admin Reason: Cancelled by Provider Morphine Sulfate (Morphine Sulf Inj 4 Mg/Ml Vial) 4 mg IVP X1 ONE Stop: 06/04/25 04:14 Last Admin: 06/04/25 04:17 Dose: 4 mg Documented By: SAMY Ondansetron HCl (Ondansetron Inj 2 Mg/Ml Inj 2 Ml) 4 mg IM X1 ONE; Protocol Stop: 06/04/25 03:39 Last Admin: 06/04/25 04:18 Dose: Not Given Documented By: SAMY Non-Admin Reason: Cancelled by Provider Ondansetron HCl (Ondansetron Inj 2 Mg/Ml Inj 2 Ml) 4 mg IVP X1 ONE; Protocol Stop: 06/04/25 04:10 Last Admin: 06/04/25 04:17 Dose: 4 mg Documented By: SAMY see above Consultations Consultation(s) initiated? (list below): No Diagnosis Differential diagnosis abdominal pain: diverticulitis, pancreatitis and other (gastritis, GERD, cholelithiasis, choledocholithiasis, cholecystitis) Most likely diagnosis given after review of the tests above:: see clinical impression below Admission Indicated Admission indicated?: not indicated Admission Request Was there a request for admission?: No Disposition Plan Disposition Plan: Discharge Discharge Attestation Discharge Attestation: The patient and all family members were given an opportunity to ask questions and understood the discharge instructions. Discharge instructions specifically effects, indications for sooner follow up or return to the emergency department, and the expected course of current diagnosis. Patient condition: Stable Discharge Plan Plan Patient Disposition: HOME (Self Care) Prescriptions/Referrals Prescriptions/Med Rec: No Action Zepbound 5 mg/0.5 mL pen injector 5 mg subcut QWEEK albuterol sulfate [Ventolin HFA] 90 mcg/actuation HFA aerosol inhaler 2 puff inhalation Q6H PRN (Reason: shortness of breath or wheezing) Qty: 8.5 3RF pantoprazole [Protonix] 40 mg tablet,delayed release (DR/EC) 40 mg PO QDAY Qty: 30 0RF dicyclomine 20 mg tablet 20 mg PO QID PRN (Reason: abdominal pain) Qty: 20 0RF Referrals: Ana Ruiz PA-C [Primary Care Provider, Family Practice] - In 1 week Problem List Clinical Impression: Cholelithiasis, Biliary colic Patient/Caregiver Discharge Instructions Education Materials: Treating Gallstones, ED Gallstones with Biliary Colic Additional Instructions: Your labs today showed a mild elevation in your white blood cell count. Your liver function test were normal, and all other studies did not identify any acute abnormalities. Given your history gallstones is important that you establish care with a primary care doctor and request a referral to see a surgeon for further workup and management of your biliary colic. I recommend that you eat a bland diet, hydrate well, avoid spicy foods, fatty foods, foods high in sugar. Also recommend abstaining from marijuana as this may make your symptoms worse. Please return to the emergency room immediately if you have any worsening symptoms or symptoms of concern. Print Language: Citizen [place] Stand Alone Forms: [employer] Award Info., Patient Portal Info Letter
--- NOTE | 2025-06-04 05:37 | PRELIM_ITS ---
Right upper quadrant abdominal ultrasound with Doppler and wave Doppler spectral analysis. June 04, 2025 at 0431 hours Clinical history: Gallstones. Technique: Grayscale and color flow images of the right upper quadrant are provided. Hepatic and portal veins were also imaged with color flow images. Comparison: None available at the time of this report. Findings: The liver is enlarged and demonstrates increased echogenicity. No intrahepatic biliary ductal dilatation. Gallstones. No gallbladder wall thickening or pericholecystic fluid is demonstrated. The common bile duct is normal in caliber at 2.7 mm. The pancreas is unremarkable to the extent visualized. The imaged portions of the right kidney are within normal limits. The portal vein is patent with Doppler without flow and normal wave Doppler spectral analysis. The hepatic veins are patent. Perry sign is not available at the time of this report. Impression: Gallstones without evidence of acute cholecystitis. Hepatomegaly associated with liver steatosis, suspicious for steatohepatitis. Report Electronically Signed By: Jayy Pisano 06/04/2025 5:36:10 AM [EST]
[2025-06-04] MEDS: HYDROmorphone INJ 2 MG/ML VIAL 1 MG IVP (06:00)
[2025-06-04 06:01] VITALS: BP 144/70; PULSE 78; RESP 16; TEMP 36.8; O2SAT 98
== END 2025-06-04 06:16 | disposition home or self-care (01) ==
PROVIDERS: Nurse Practitioner Family; Emergency Provider Emergency Medicine; PCP Physician Assistant
DX: K80.70 Calculus of gallbladder and bile duct without cholecystitis without obstruction (principal)
CPT/HCPCS: 36415; 76705; 80053; 81001; 81025; 83690; 85025; 87040; 96374; 96375; 99283; J1171; J2270; J2405